=== PATIENT | female | born 1965 ===

== ENCOUNTER 2020-02-08 07:22 | Day surgery (SDC) | payer OTHER ==
[2020-02-08] MEDS ORDERED: MACROBID 100 M100 MG PO (11:49)
[2020-02-08] MEDS ORDERED: ULTRACET PO (11:49)
== END 2020-02-08 14:01 | disposition home or self-care (01) ==
LOC: CIR.AMB 07:22
PROVIDERS: ATTEND Obstetrics & Gynecology Gynecology
DX: N39.3 Stress incontinence (female) (male) (principal); Z20.828 Contact with and (suspected) exposure to other viral communicable diseases
CPT/HCPCS: 57288; C1771